=== PATIENT | male | born 1965 | race African-American/Black ===

== ENCOUNTER 2019-05-15 07:49 | Inpatient (IN) | payer OTHER ==
[~2019-05-15] VITALS: Ht 185.4 cm; Wt 158.8 kg
[2019-05-15 07:57] VITALS: Ht 185.4 cm; Wt 158.8 kg
[2019-05-15] MEDS ORDERED: PLAQUENIL200 MG PO (09:32)
[2019-05-15] MEDS ORDERED: TEMOVATE0.05% TOP (09:33)
[2019-05-15] MEDS ORDERED: DULOXETINE HYDR60 MG PO (09:33)
[2019-05-15] MEDS ORDERED: KEN10 TOP (09:33)
[2019-05-15] MEDS ORDERED: LANTI SQ (09:34)
[2019-05-15] MEDS ORDERED: NATURAL IRON65 MG PO (09:34)
[2019-05-15] MEDS ORDERED: HUMIRA10 MG/0.1 SQ (09:34)
[2019-05-15] MEDS ORDERED: CALCIPOTRIENE0.005% TOP (09:34)
[2019-05-15] MEDS ORDERED: ZYRTEC ALLERGY10 MG PO (09:34)
[2019-05-15] MEDS ORDERED: ATORVASTATIN CA10 M1 GT (09:35)
[2019-05-15] MEDS ORDERED: ASPIR 8181 MG PO (09:35)
[2019-05-15] MEDS ORDERED: OTEZLA30 MG PO (09:35)
[2019-05-15] MEDS ORDERED: TENORMIN50 MG PO (09:35)
[2019-05-15] MEDS ORDERED: AFREZZA1 EAC1 IH (09:35)
[2019-05-15 10:53] VITALS: BP 143/75
[2019-05-15 17:16] VITALS: BP 144/82
[2019-05-15 20:22] VITALS: BP 168/92
[2019-05-16 06:18] VITALS: BP 121/59
[2019-05-16 08:27] VITALS: BP 136/73
[2019-05-16 11:25] VITALS: BP 157/85
[2019-05-16 12:42] VITALS: BP 136/63
== END 2019-05-16 17:02 | disposition other institution (70) | DRG 916 ==
LOC: ED 07:49 → DU 09:19
PROVIDERS: ADMIT Internal Medicine
DX: T88.6XXA Anaphylactic reaction due to adverse effect of correct drug or medicament properly administered, initial encounter (principal); E78.5 Hyperlipidemia, unspecified; T78.3XXA Angioneurotic edema, initial encounter; L40.50 Arthropathic psoriasis, unspecified; I10 Essential (primary) hypertension; E11.9 Type 2 diabetes mellitus without complications; T39.4X5A Adverse effect of antirheumatics, not elsewhere classified, initial encounter; M06.9 Rheumatoid arthritis, unspecified; M19.90 Unspecified osteoarthritis, unspecified site; Z68.28 Body mass index [BMI] 28.0-28.9, adult; Y92.143 Cell of prison as the place of occurrence of the external cause; Z79.899 Other long term (current) drug therapy
CPT/HCPCS: 82962; G0378; J1815; J2920; J2930; J3490